=== PATIENT | male | born 1930 | race African-American/Black ===

== ENCOUNTER 2019-12-22 12:06 | Emergency (ER) | payer MEDICARE, MEDICAID ==
[~2019-12-22] VITALS: Ht 172.7 cm; Wt 45.0 kg
[2019-12-22] MEDS ORDERED: SODIUM CHLORIDE 0.9% 1,000 ML IV ONE (12:32)
[2019-12-22 12:58] LABS: HEMATOCRIT. 45.5 % (42.0-52.0); MEAN CORPUSCULAR HEMOGLOBIN 32.1 pg (28.0-32.0); MEAN CORPUSCULAR VOLUME 97.6 fL (80.0-94.0); MEAN PLATELET VOLUME 8.3 fl (7.4-10.4); PLATELET 248 x1000/uL (130-400); RED BLOOD CELL COUNT 4.66 mill/uL (4.7-6.1); RED CELL DISTRIBUTION WIDTH 14.9 % (11.6-14.6)
[2019-12-22 13:02] LABS: CHLORIDE 104 mEq/L (98-107)
[2019-12-22 13:06] LABS: ETHANOL BLOOD < 10 mg/dL
[2019-12-22 13:18] LABS: PLATELET ESTIMATE NORMAL
[2019-12-22] MEDS ORDERED: HEPARIN 5000 UNITS/ML VIAL IV ONE ×2 (13:45→14:00)
[2019-12-22] MEDS ORDERED: ASPIRIN 81MG TABLET PO ONE (13:45)
[2019-12-22 13:47] LABS: CREATINE KINASE 3403 IU/L (39-308)
[2019-12-22 14:05] LABS: INR 1.1; PROTHROMBIN TIME 11.4 sec (9.6-11.0)
[2019-12-22 14:45] VITALS: BP 120/80
== END 2019-12-22 14:30 | disposition short-term general hospital (02) ==
LOC: ER 12:36
DX: I21.3 ST elevation (STEMI) myocardial infarction of unspecified site (principal); G93.49 Other encephalopathy; M62.82 Rhabdomyolysis; I10 Essential (primary) hypertension; Z60.2 Problems related to living alone
CPT/HCPCS: 36415; 70450; 71045; 80053; 80320; 82550; 84484; 85025; 85610; 87040; 93005; 96374; 99291; J1644; J7030; G0480